=== PATIENT | male | born 1970 | race American Indian/Alaskan Native ===

== ENCOUNTER 2021-07-30 20:55 | Emergency (ER) | payer SELFPAY ==
[2021-07-30] MEDS ORDERED: ASPIRIN 325 MG TAB PO ONE (23:04)
[2021-07-30 23:55] LABS: Basophils # (Auto) 0.1 K/mm3 (0.0-0.1); Basophils % (Auto) 0.9 % (0.0-1.8); Eosinophils # (Auto) 0.1 K/mm3 (0.0-0.4); Eosinophils % (Auto) 1.1 % (0.0-4.3); Hematocrit 51.5 % (35.5-45.6); Hemoglobin 16.9 gm/dl (11.8-15.2); Lymphocytes # (Auto) 2.6 K/mm3 (1.2-5.4); Lymphocytes % (Auto) 23.1 % (13.4-35.0); Mean Corpuscular HGB Conc 33 % (32-34); Mean Corpuscular Volume 96 fl (84-94); Monocytes # (Auto) 0.9 K/mm3 (0.0-0.8); Platelet Count 264 K/mm3 (140-440); Red Blood Count 5.35 M/mm3 (3.65-5.03); Red Cell Distribution Width 13.2 % (13.2-15.2)
--- NOTE | 2021-07-31 | XRay Report ---
CHEST 1 VIEW INDICATION / CLINICAL INFORMATION: chest pain. COMPARISON: None available. FINDINGS: SUPPORT DEVICES: None. HEART / MEDIASTINUM: No significant abnormality. LUNGS / PLEURA: No significant pulmonary or pleural abnormality. No pneumothorax. ADDITIONAL FINDINGS: No significant additional findings. IMPRESSION: 1. No acute findings. Signer Name: Beti Hernández MD Signed: 07/30/2021 11:55 PM Workstation Name: [id number]
[2021-07-31 00:16] LABS: Alanine Aminotransferase 20 units/L (7-56); Albumin 4.9 g/dL (3.9-5); BUN/Creatinine Ratio 18; Blood Urea Nitrogen 21 mg/dL (9-20); Calcium 9.6 mg/dL (8.4-10.2); Hemolysis Index 4
--- NOTE | 2021-07-31 01:03 | Emergency Department Report ---
ED General Adult HPI - General Chief complaint: Extremity Injury, Upper Stated complaint: CHEST PAIN Source: patient Mode of arrival: Ambulatory Limitations: No Limitations - History of Present Illness Initial comments: Patient is a 51-year-old -Russian male with no past medical history except Graves' disease who presents to the ED with complaint of acute onset persistent left shoulder pain that radiates to the mid posterior thoracic area and left chest wall intermittently for the last 1 month, worse in the last 1 week. Patient states that the pain is usually worse after physical activity or heavy lifting which his job entails daily. Patient denies shortness of breath, numbness and tingling or weakness of upper extremities bilaterally, neck pain, headache, dizziness, syncope, palpitations, abdominal pain, nausea and vomiting, traumatic injury or fall, fever and chills or cough. MD Complaint: left shoulder pain that radiates to left chest wall -: Sudden, month(s) (1) Location: chest, upper extremity (left shoulder) Radiation: non-radiation Severity scale (0 -10): 5 Quality: aching, sharp Consistency: intermittent Improves with: none Worsens with: movement, other (physical activities) Associated Symptoms: denies other symptoms, chest pain (left-sided). denies: confusion, cough, diaphoresis, fever/chills, headaches, loss of appetite, malaise, shortness of breath, syncope, weakness Treatments Prior to Arrival: none - Related Data Previous Rx's Medication Instructions Recorded Last Taken Type Baclofen 20 mg PO Q12H PRN #24 tab 07/31/21 Unknown Rx Ibuprofen [Motrin] 800 mg PO Q8HR PRN #30 tablet 07/31/21 Unknown Rx Allergies Allergy/AdvReac Type Severity Reaction Status Date / Time No Known Allergies Allergy Verified 07/30/21 21:19 ED Review of Systems ROS: Stated complaint: CHEST PAIN Other details as noted in HPI Constitutional: denies: chills, fever Eyes: denies: eye pain, eye discharge, vision change ENT: denies: ear pain, throat pain Respiratory: denies: cough, shortness of breath, wheezing Cardiovascular: chest pain (left-sided). denies: palpitations Endocrine: no symptoms reported Gastrointestinal: denies: abdominal pain, nausea, diarrhea Genitourinary: denies: urgency, dysuria Musculoskeletal: arthralgia (left shoulder pain that radiates to left chest wall), myalgia. denies: back pain, joint swelling Skin: denies: rash, lesions Neurological: denies: headache, weakness, paresthesias Psychiatric: denies: anxiety, depression Hematological/Lymphatic: denies: easy bleeding, easy bruising ED Past Medical Hx - Past Medical History Previous Medical History?: Yes Additional medical history: Graves - Surgical History Past Surgical History?: No - Medications Home Medications: Home Medications Medication Instructions Recorded Confirmed Last Taken Type Baclofen 20 mg PO Q12H PRN #24 tab 07/31/21 Unknown Rx Ibuprofen [Motrin] 800 mg PO Q8HR PRN #30 tablet 07/31/21 Unknown Rx ED Physical Exam - General Limitations: No Limitations General appearance: alert, in no apparent distress - Head Head exam: Present: atraumatic, normocephalic, normal inspection - Eye Eye exam: Present: normal appearance, PERRL, EOMI Pupils: Present: normal accommodation - ENT ENT exam: Present: normal exam, normal orophraynx, mucous membranes moist, TM's normal bilaterally, normal external ear exam - Neck Neck exam: Present: normal inspection, full ROM - Respiratory Respiratory exam: Present: normal lung sounds bilaterally, chest wall tenderness (Palpable reproducible left-sided sided chest wall tenderness). Absent: respiratory distress, wheezes, rales, rhonchi, accessory muscle use, decreased breath sounds, prolonged expiratory - Cardiovascular Cardiovascular Exam: Present: regular rate, normal rhythm, normal heart sounds. Absent: systolic murmur, diastolic murmur, rubs, gallop - GI/Abdominal GI/Abdominal exam: Present: soft, normal bowel sounds. Absent: tenderness, guarding, rebound, hyperactive bowel sounds, hypoactive bowel sounds, organomegaly, mass - Extremities Exam Extremities exam: Present: normal inspection, full ROM, tenderness (Palpable left shoulder tenderness ), normal capillary refill - Back Exam Back exam: Present: normal inspection, full ROM. Absent: tenderness, CVA tenderness (R), muscle spasm, vertebral tenderness - Neurological Exam Neurological exam: Present: alert, oriented X3, CN II-XII intact, normal gait, reflexes normal - Psychiatric Psychiatric exam: Present: normal affect, normal mood - Skin Skin exam: Present: warm, dry, intact, normal color. Absent: rash ED Course Vital Signs 07/30/21 21:19 Temperature 98.6 F Pulse Rate 81 Respiratory 17 Rate Blood Pressure 159/79 [Right] O2 Sat by Pulse 99 Oximetry ED Medical Decision Making - Lab Data Result diagrams: 07/30/21 23:21 07/30/21 23:21 - EKG Data EKG shows normal: sinus rhythm Rate: normal - EKG Data Interpretation: normal EKG 07/31/21 01:22 EKG shows normal sinus rhythm with a ventricular rate of [address] or T wave abnormalities. - Radiology Data Radiology results: report reviewed, image reviewed [facility] [address] [place] [address] XRay Report Signed Patient: ABDELRAHMAN CHE MR#: [id number] : 1970 Acct:[id number] Age/Sex: 51 / M ADM Date: 07/30/21 Loc: ED Attending Dr: Ordering Physician: EUGENE COMER Date of Service: 07/30/21 Procedure(s): XR chest 1V ap Accession Number(s): [id number] cc: EUGENE COMER Fluoro Time In Minutes: CHEST 1 VIEW INDICATION / CLINICAL INFORMATION: chest pain. COMPARISON: None available. FINDINGS: SUPPORT DEVICES: None. HEART / MEDIASTINUM: No significant abnormality. LUNGS / PLEURA: No significant pulmonary or pleural abnormality. No pneumothorax. ADDITIONAL FINDINGS: No significant additional findings. IMPRESSION: 1. No acute findings. Signer Name: Beti Hernández MD Signed: 07/30/2021 11:55 PM Workstation Name: [id number] Transcribed By: JR Dictated By: Beti Hernández MD Electronically Authenticated By: Beti Hernández MD Signed Date/Time: 07/30/212354 DD/ 54 TD/TT: - Medical Decision Making This is a 51-year-old -Russian male with no past medical history except Graves' disease who presents to the ED with complaint of acute onset persistent left shoulder pain that radiates to the mid posterior thoracic area and left chest wall intermittently for the last 1 month, worse in the last 1 week. Patient states that the pain is usually worse after physical activity or heavy lifting which his job entails daily. In the ED, patient is alert and oriented x3 and is not in any distress. Chest x-ray showed no acute cardiopulmonary abnormalities or pneumonitis. The EKG shows normal sinus rhythm with a ventricular rate of [address] or T wave abnormalities. Lab test results were reviewed and are all nonactionable. Patient heart score is 1 for age, and patient is PERC negative per Wells criteria. Patient symptoms are likely musculoskeletal, and not due to acute coronary syndrome or PE due to the fact that the symptoms have been going on for over 1 month and that there generated by physical activity or heavy lifting. Patient was therefore discharged home on pain medications and muscle relaxants and advised to follow-up with his primary care physician in 5 to 7 days for reevaluation or return to the ED immediately if symptoms get worse. - Differential Diagnosis ACS; muscle strain; costochondritis; PE; dissection; pneumonia; Critical care attestation.: If time is entered above; I have spent that time in minutes in the direct care of this critically ill patient, excluding procedure time. ED Disposition Clinical Impression: Acute costochondritis, Left-sided chest wall pain Muscle strain of left shoulder Qualifiers: Encounter type: initial encounter Qualified Code(s): S46.912A - Strain of unspecified muscle, fascia and tendon at shoulder and upper arm level, left arm, initial encounter Disposition: 01 HOME / SELF CARE / HOMELESS Is pt being admited?: No Does the pt Need Aspirin: No Condition: Stable Instructions: Shoulder Pain, Costochondritis, [id number], Chest Wall Pain, [id number], Muscle Strain, [id number], Nonspecific Chest Pain, Adult, [id number], Muscle Strain Additional Instructions: All lab test results were reviewed and are all nonactionable. Chest x-ray showed no acute cardiopulmonary abnormalities or pneumonitis. Therefore your symptoms are likely musculoskeletal following heavy lifting at work. Take medication with food, drink plenty of fluids and follow-up with your primary care physician in 5 to 7 days for reevaluation. Return to the ED immediately if symptoms get worse. Prescriptions: Baclofen 20 mg PO Q12H PRN #24 tab PRN Reason: Muscle Spasm Ibuprofen [Motrin] 800 mg PO Q8HR PRN #30 tablet PRN Reason: Pain , Severe (7-10) Referrals: [facility] [Provider Group] - 7-10 days Time of Disposition: 01:03 Print Language: GUATEMALAN
[2021-07-31 02:15] VITALS: BP 154/88
--- NOTE | 2021-07-31 10:24 | Electrocardiograph Report ---
[facility] Test Date: 2021-07-30 Test Time: 21:14:19 Pat Name: ABDELRAHMAN CHE Department: Room: Gender: M Ios Developer: CHUCKIE : 1970 Requested By: ELVER BRITO Order Number: [id number] Reading MD: Jany Herrera Measurements Intervals [place] Rate: 87 P: 45 CT: 177 QRS: 50 QRSD: 79 T: 34 QT: 339 QTc: 409 Interpretive Statements Sinus rhythm No previous ECG available for comparison Electronically Signed On 07-31-2021 10:23:29 EST by Jany Herrera
== END 2021-07-31 02:10 | disposition home or self-care (01) ==
LOC: ED 20:55
DX: S46.912A Strain of unspecified muscle, fascia and tendon at shoulder and upper arm level, left arm, initial encounter (principal); M94.0 Chondrocostal junction syndrome [Tietze]; R07.89 Other chest pain; X58.XXXA Exposure to other specified factors, initial encounter; Y93.89 Activity, other specified; Y92.89 Other specified places as the place of occurrence of the external cause; Y99.8 Other external cause status
CPT/HCPCS: 36415; 71045; 80053; 83880; 84484; 85025; 93005; 93010; 99284